=== PATIENT | male | born 1975 | race Caucasian/White ===

== ENCOUNTER 2017-04-23 17:13 | Emergency (ER) | payer OTHER ==
[~2017-04-23] VITALS: Ht 185.4 cm; Wt 115.0 kg
[2017-04-23] MEDS ORDERED: LORazepam 1MG TABLET PO ONE ×2 (17:30→19:30)
[2017-04-23] MEDS ORDERED: FLUO40CA2 PO (17:40)
[2017-04-23] MEDS ORDERED: METO-99 PO (17:40)
[2017-04-23 17:49] LABS: HEMATOCRIT 45.1 % (39.2-51.8); HEMOGLOBIN 15.6 g/dL (13.7-18.0); WHITE BLOOD COUNT 12.4 x10^3/uL (3.4-10)
[2017-04-23 18:00] LABS: ASPARTATE AMINO TRANSFERASE 33 U/L (15-37); BLOOD UREA NITROGEN 18 mg/dL (7-18)
[2017-04-23] MEDS ORDERED: PLEASE ENTER HEIGHT AND WEIGHT MC SCH (18:00)
[2017-04-23 18:04] LABS: ACETAMINOPHEN < 2 mcg/mL (10-30)
[2017-04-23] MEDS ORDERED: LORazepam 1MG TABLET ONE (18:38)
[2017-04-23] MEDS ORDERED: LORazepam 2 MG/ML, 1ML IM ONE (19:30)
[2017-04-23] MEDS ORDERED: LORazepam 2 MG/ML, 1ML ONE (19:46)
[2017-04-23] MEDS ORDERED: ZIPRASIDONE 20 MG INJ IM ONE ×2 (22:25→22:30)
[2017-04-24] MEDS ORDERED: FLUOXETINE 20 MG CAPSULE PO ONE (09:00)
[2017-04-24 10:49] LABS: DAU SCREEN DISCLAIMER
[2017-04-24] MEDS ORDERED: LORazepam 1MG TABLET ONE ×2 (12:02→20:51)
[2017-04-24] MEDS ORDERED: LORazepam 1MG TABLET PO ONE ×2 (12:30→21:00)
[2017-04-24] MEDS: METOPROLOL TARTRATE 100 MG TABLET PO SCH (20:41)
[2017-04-25 08:24] VITALS: BP 155/93
[2017-04-25] MEDS: METOPROLOL TARTRATE 100 MG TABLET PO SCH (08:34)
== END 2017-04-25 15:36 | disposition home or self-care (01) ==
LOC: ED 18:38
DX: F22 Delusional disorders (principal); N28.9 Disorder of kidney and ureter, unspecified; F15.180 Other stimulant abuse with stimulant-induced anxiety disorder; F91.8 Other conduct disorders; F17.200 Nicotine dependence, unspecified, uncomplicated; I10 Essential (primary) hypertension; F31.9 Bipolar disorder, unspecified; F41.9 Anxiety disorder, unspecified
CPT/HCPCS: 36415; 80053; 80307; 80329; 85025; 96372; 99284; J2060; G0479; G0480

== ENCOUNTER 2017-04-27 10:06 | Emergency (ER) | payer SELFPAY ==
[~2017-04-27] VITALS: Ht 185.4 cm; Wt 102.9 kg
[~2017-04-27 10:06] MED LIST: FLUO40CA2 PO; METO-99 PO
[2017-04-27 10:09] VITALS: BP 121/81
[2017-04-27] MEDS ORDERED: LORazepam 1MG TABLET PO ONE (10:30)
[2017-04-27] MEDS ORDERED: LORazepam 1MG TABLET ONE (11:04)
== END 2017-04-27 11:35 | disposition home or self-care (01) ==
LOC: ED 10:21
DX: F15.129 Other stimulant abuse with intoxication, unspecified (principal); F31.9 Bipolar disorder, unspecified; I10 Essential (primary) hypertension
CPT/HCPCS: 93005; 99283

== ENCOUNTER 2017-04-27 18:39 | Observation (INO) | payer OTHER ==
[~2017-04-27] VITALS: Ht 185.4 cm; Wt 103.2 kg
[2017-04-27] MEDS ORDERED: LORazepam 1MG TABLET PO ONE (19:00)
[2017-04-27 19:19] LABS: HEMATOCRIT 44.7 % (39.2-51.8); HEMOGLOBIN 15.6 g/dL (13.7-18.0); WHITE BLOOD COUNT 14.9 x10^3/uL (3.4-10)
[2017-04-27] MEDS ORDERED: LORazepam 1MG TABLET ONE (19:23)
[2017-04-27 19:31] LABS: BLOOD UREA NITROGEN 8 mg/dL (7-18)
[2017-04-27 19:34] LABS: ACETAMINOPHEN < 2 mcg/mL (10-30)
[2017-04-27 21:23] LABS: DAU SCREEN DISCLAIMER
[2017-04-27] MEDS ORDERED: hydrALAzine 20 MG/ML, 1ML IV PRN (22:30)
[2017-04-27] MEDS ORDERED: ACETAMINOPHEN 325 MG TABLET PO PRN (22:30)
[2017-04-27] MEDS ORDERED: ONDANSETRON ODT 4 MG PO PRN (22:30)
[2017-04-27 22:53] VITALS: BP 154/89
[2017-04-27] MEDS ORDERED: METOPROLOL TARTRATE 100 MG TABLET PO ONE (23:30)
[2017-04-28 08:45] VITALS: BP 106/65
[2017-04-28] MEDS: METOPROLOL TARTRATE 100 MG TABLET PO SCH ×2 (08:56→21:27)
[2017-04-28] MEDS: FLUOXETINE 20 MG CAPSULE PO SCH (08:56)
[2017-04-28 19:05] VITALS: BP 119/73
[2017-04-29 07:46] VITALS: BP 118/75
[2017-04-29] MEDS: FLUOXETINE 20 MG CAPSULE PO SCH (09:35)
[2017-04-29] MEDS: METOPROLOL TARTRATE 100 MG TABLET PO SCH ×2 (09:35→20:05)
[2017-04-29 19:11] VITALS: BP 135/98
[2017-04-30 08:11] VITALS: BP 127/88
[2017-04-30] MEDS: METOPROLOL TARTRATE 100 MG TABLET PO SCH ×2 (08:21→20:34)
[2017-04-30] MEDS: FLUOXETINE 20 MG CAPSULE PO SCH (08:21)
[2017-04-30 19:24] VITALS: BP 129/79
[2017-05-01 07:56] VITALS: BP 117/81
[2017-05-01] MEDS: FLUOXETINE 20 MG CAPSULE PO SCH (08:35)
[2017-05-01] MEDS: METOPROLOL TARTRATE 100 MG TABLET PO SCH ×2 (08:36→21:39)
[2017-05-01 19:28] VITALS: BP 133/83
[2017-05-01] MEDS ORDERED: ENOXAPARIN 40 MG/0.4 ML SQ SCH (22:00)
== END 2017-05-02 00:37 ==
LOC: ED 19:01 → EDIP 22:08 → 3E 22:48
PROVIDERS: ADMIT Family Medicine; ATTEND Family Medicine
DX: R45.851 Suicidal ideations (principal); R44.0 Auditory hallucinations; F15.90 Other stimulant use, unspecified, uncomplicated; F31.9 Bipolar disorder, unspecified; F10.129 Alcohol abuse with intoxication, unspecified; F17.200 Nicotine dependence, unspecified, uncomplicated; M10.9 Gout, unspecified; I10 Essential (primary) hypertension; Z59.0 Homelessness; Z81.8 Family history of other mental and behavioral disorders
CPT/HCPCS: 36415; 73610; 80048; 80307; 80329; 82040; 84443; 85025; 93005; 93971; 99285; G0378; G0479; G0480